=== PATIENT | female | born 1975 | race Hispanic/Latino ===

== ENCOUNTER 2022-08-14 16:57 | Emergency (ER) | payer SELFPAY ==
--- NOTE | ~2022-08-14 | XR_ITS ---
EXAMINATION: XR chest 2V Exam Date/Time: 08/14/2022 17:30 APPLICATIONS PROGRAMMER HISTORY: cough, wheezing x 3 days Comparison: None available. RESULT: Lines, tubes, and devices: None. Lungs and pleura: Clear. Cardiomediastinal silhouette: Unremarkable. Other: No acute osseous or upper abdominal finding. IMPRESSION: No acute cardiopulmonary process. Reviewed, dictated and finalized at location K. [facility] PROGRAMMER
[2022-08-14 17:05] VITALS: BP 114/71; PULSE 75; RESP 20; TEMP 36.9; O2SAT 100
--- NOTE | 2022-08-14 17:07 | ED.URI ---
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 Patient states that most of the symptoms started on Saturday and she developed a fever last night. Patient has been taking allergy and cold medication. No other acute complaints. No acute distress noted. Patient aware of the plan of care. Some parts of this dictation were generated by voice recognition software and may contain typographical and/or grammatical inaccuracies. Related Data Allergies Allergy/AdvReac Type Severity Reaction Status Date / Time No Known Allergies Allergy Verified 08/14/22 17:18 Review of Systems Review of Systems: CONSTITUTIONAL: Reports fever EYES: Denies visual changes, redness, or discharge. ENT: Reports of congestion CARDIOVASCULAR: Denies chest pain, palpitations, or edema. RESPIRATORY: Reports of cough and intermittent dyspnea GASTROINTESTINAL: Denies abdominal pain, nausea, vomiting, or diarrhea. GENITOURINARY: Denies dysuria or hematuria. SKIN: Denies rash or itching. MUSCULOSKELETAL: Denies back pain, joint pain. reports of body aches NEUROLOGIC: Reports of headache All other systems reviewed are negative, except as documented in HPI. PMFSH Comments At the time of my signature, I reviewed and agree with the nursing past medical, surgical, social, and family history. There is no relevant family history pertinent to the patient complaint. Exam Narrative: GENERAL: This is a well-nourished, well-developed patient, appears fatigued HEAD: normocephalic, atraumatic. EYES: PERRL. Sclera clear/white. Vision is grossly intact. EARS: External ears normal, auditory canals clear and without drainage, TMs normal without perforation. Hearing grossly intact. NOSE: External nose normal with no obvious nasal discharge, nares without redness, clear rhinorrhea. THROAT: Mucous membranes moist, posterior pharynx clear. Moderate postnasal drainage NECK: Neck supple, non-tender without lymphadenopathy CARDIOVASCULAR: Regular rate and rhythm without murmurs, gallops, or rubs. RESPIRATORY: Crackles bibasilar SKIN: warm, intact with no suspicious lesions or rash, good texture and turgor. NEURO: awake, alert, and oriented to person, place and time. There were no obvious focal neurologic abnormalities. EXTREMITIES: No clubbing, cyanosis, or edema. Course Course Level of Care: Express Care Visit Vital Signs Vital signs: Vital Signs Temperature 98.4 F 08/14/22 17:05 Pulse Rate 75 08/14/22 17:05 Respiratory Rate 20 08/14/22 17:05 Blood Pressure 114/71 08/14/22 17:05 Pulse Oximetry 100 08/14/22 17:05 Oxygen Delivery Room Air 08/14/22 17:05 Temperature 98.4 F 08/14/22 17:18 Pulse Rate 75 08/14/22 17:18 Respiratory Rate 20 08/14/22 17:18 Blood Pressure 114/71 08/14/22 17:18 Pulse Oximetry 100 08/14/22 17:18 Oxygen Delivery Room Air 08/14/22 17:18 Reviewed MDM - URI/Sore Throat MDM Narrative Medical decision making narrative: Reviewed lab results with patient and son. Aware that flu swab was negative for influenza. Aware that chest x-ray was negative for pneumonia or abnormality. Advised the patient to use the inhaler as needed for shortness of breath or wheezing. Complete the steroid regimen as prescribed. Increase fluid intake and rest. Use a humidifier at night. Continue Tylenol/ibuprofen. If she develops any increase in symptoms associated with chest pain, difficulty breathing, or persistent high fevers-go to the emergency room. Follow-up with your PCP within 2-5 days or for worsening symptoms or failure to improve. Differential Diag
[2022-08-14 17:18] VITALS: BP 114/71; PULSE 75; RESP 20; TEMP 36.9; O2SAT 100
== END 2022-08-14 17:58 | disposition home or self-care (01) ==
PROVIDERS: Emergency Provider Nurse Practitioner Family
DX: J06.9 Acute upper respiratory infection, unspecified (principal)
CPT/HCPCS: 71046; 87804; 99213; G0463